=== PATIENT | male | born 1970 | race Caucasian/White ===

== ENCOUNTER 2018-07-04 10:27 | Emergency (ER) | payer OTHER ==
[2018-07-04 11:07] LABS: ADD MAN DIFF? NO
[2018-07-04] MEDS: SOD CHLORIDE 0.9% 1,000 ML IV (11:09)
[2018-07-04 11:17] LABS: WHITE BLOOD COUNT 6.4 10^3/ul (4.8-10.8)
[2018-07-04 11:17] LABS: BASOPHILS % 0.6 % (0.0-2.0); EOSINOPHILS # 0.1 10^3/ul (0.0-0.5); EOSINOPHILS % 1.9 % (0.0-7.0); HEMOGLOBIN 12.8 g/dl (14.0-18.0); LYMPHOCYTES # 1.5 10^3/ul (0.8-2.9); LYMPHOCYTES % 23.1 % (15.0-51.0); MEAN CORPUSCULAR HEMOGLOBIN 31.2 pg (29.0-33.0); MEAN CORPUSCULAR HGB CONC 34.6 g/dl (32.0-37.0); MEAN CORPUSCULAR VOLUME 90.2 fl (82.0-101.0); MEAN PLATELET VOLUME 9.2 fl (7.4-10.4); MONOCYTE # 0.5 10^3/ul (0.3-0.9); MONOCYTES % 8.1 % (0.0-11.0); NEUTROPHIL # 4.2 10^3/ul (1.6-7.5); NEUTROPHILS % 66.1 % (39.0-77.0); PLATELET COUNT 320 10^3/UL (140-415); RED CELL DISTRIBUTION WIDTH 12.2 % (11.5-14.5)
[2018-07-04 11:26] LABS: ANION GAP 21 (5-13); BLOOD UREA NITROGEN 9 mg/dl (7-20); CALCIUM 9.8 mg/dl (8.4-10.2); CARBON DIOXIDE 16 mmol/L (21-31); CHLORIDE 97 mmol/L (97-110); CREATININE 0.75 mg/dl (0.61-1.24); Estimated GFR > 60 mL/min (>60); MAGNESIUM 1.8 mg/dl (1.7-2.5); PHOSPHORUS 3.7 mg/dl (2.5-4.9); POTASSIUM 4.2 mmol/L (3.5-5.1); SODIUM 134 mmol/L (135-144)
[2018-07-04 11:34] LABS: GLUCOSE 522 mg/dl (70-220)
[2018-07-04 11:42] LABS: AADO2 Venous 73.3 mmHg; MODE ROOM AIR; MetHgb Venous 0.3 %; Sample Type Blood venous; Site VENOUS LINE; Venous COHb 0.4 %; Venous Fraction OxyHgb 80.4 %; Venous Total Hemglobin 13.7 g/dl
[2018-07-04] MEDS ORDERED: DEXTROSE 10%/0.45% NACL 1,000 ML IV (12:01)
[2018-07-04] MEDS ORDERED: D10/0.45% NACL + KCL 30 MEQ 1,000 ML IV (12:01)
[2018-07-04] MEDS ORDERED: NS + KCL 40 MEQ 1,000 ML IV (12:01)
[2018-07-04] MEDS ORDERED: D10/0.45% NACL + KCL 40 MEQ 1,000 ML IV (12:01)
[2018-07-04] MEDS ORDERED: SOD CHLORIDE 0.9% 1,000 ML IV (12:01)
[2018-07-04] MEDS ORDERED: NS + KCL 30 MEQ 1,000 ML IV (12:01)
[2018-07-04 12:09] LABS: ADD UMIC YES; UR ASCORBIC ACID NEGATIVE (NEGATIVE); UR BILIRUBIN (Dip) NEGATIVE (NEGATIVE); UR BLOOD (Dip) 1+ mg/dL (NEGATIVE); UR CLARITY CLEAR (CLEAR); UR COLOR STRAW (YELLOW); UR GLUCOSE (Dip) 3+ mg/dL (NEGATIVE); UR KETONES (Dip) 2+ mg/dL (NEGATIVE); UR LEUKOCYTE ESTERASE (Dip) NEGATIVE Leu/ul (NEGATIVE); UR NITRITE (Dip) NEGATIVE (NEGATIVE); UR RBC 0 /HPF (0-5); UR SPECIFIC GRAVITY (Dip) 1.028 (1.003-1.030); UR TOTAL PROTEIN (Dip) 1+ mg/dl (NEGATIVE); UR UROBILINOGEN (Dip) NEGATIVE (NEGATIVE); UR WBC 0 /HPF (0-5)
[2018-07-04 12:28] LABS: HEMOGLOBIN A1C 9.3 % (0-5.9)
[2018-07-04] MEDS ORDERED: DEXTROSE 50% 50 ML SYRINGE IV ×2 (12:30)
[2018-07-04] MEDS ORDERED: INSULIN REGULAR, HUMAN 100 UNIT in SOD CHLORIDE 0.9% 100 ML IV (12:30)
[2018-07-04] MEDS: LACTATED RINGER'S 630 ML IV (12:53)
[2018-07-04] MEDS: LIDOCAINE/MYLANTA 40 ML BTL PO (13:49)
[2018-07-04] MEDS: LOPERAMIDE 2 MG CAP PO (13:49)
== END 2018-07-04 14:02 | disposition left against medical advice (07) ==
LOC: E/R 10:27
DX: R11.2 Nausea with vomiting, unspecified (principal); E10.10 Type 1 diabetes mellitus with ketoacidosis without coma
CPT/HCPCS: 36415; 80048; 81001; 82803; 82962; 83036; 83735; 84100; 85025; 99284-25